=== PATIENT | female | born 1990 | race African-American/Black ===

== ENCOUNTER 2024-12-21 17:32 | Emergency (ER) | payer SELFPAY ==
[2024-12-21] MEDS ORDERED: Ketorolac Tromethamine 30 MG (1 mL) VIAL ONE (18:03)
== END 2024-12-21 18:13 | disposition home or self-care (01) ==
LOC: CSHERS 17:32
DX: K08.89 Other specified disorders of teeth and supporting structures (principal); F17.210 Nicotine dependence, cigarettes, uncomplicated
CPT/HCPCS: 96372; 99282; J1885